=== PATIENT | male | born 1995 | race African-American/Black ===

== ENCOUNTER 2023-08-29 09:03 | Emergency (ER) | payer SELFPAY ==
[2023-08-29] MEDS ORDERED: MORPHINE 4 MG/ML SYR ONE (09:36)
[2023-08-29] MEDS ORDERED: MORPHINE 2 MG/ML SYR ONE (09:39)
[2023-08-29] MEDS ORDERED: HYDROMORPHONE HCL 1 MG/ML INJ ONE ×2 (10:18→11:22)
--- NOTE | 2023-08-29 10:33 | EDPHYS ---
Physician Documentation [facility] Name: Wesley Lake Age: 28 yrs Sex: Male : 1995 Arrival Date: 08/29/2023 Time: 09:03 Bed 3 Private MD: ED Physician Eduarda Miller HPI: 08/28 09:45 This 28 yrs old Black or Male presents to ER via Wheelchair with gb1 complaints of Fall Injury. 09:45 Mr. Lake is a 28-year-old -Algerian male that was transferred by ambulance with gb1 his significant other at his side after a fall injury at work. He was climbing over wires and fell and felt a pop in his right shoulder. He states that he is unable to lower his shoulder down without pain. His pain is 10 out of 10 at this time. He has had similar injury in the past but states that it was not dislocated. He is able to feel and has normal sensation on the right upper and lower extremity. Patient denies any head strike or loss of consciousness with the fall.. Historical: - Allergies: 09:32 PENICILLINS; aa5 - PMHx: 09:32 None; aa5 - PSHx: 09:32 throat; aa5 - Immunization history:: Adult Immunizations unknown. - Infectious Disease History:: Denies. - Immunization history: Last tetanus immunization: - up to date. - Social history:: Smoking status: Patient reports the use of cigarette tobacco products. Exam: 09:45 Constitutional: This is a well developed, well nourished patient who is awake, alert, gb1 and in no acute distress. Head/Face: Normocephalic, atraumatic. Eyes: Pupils equal round and reactive to light, extra-ocular motions intact. Lids and lashes normal. Conjunctiva and sclera are non-icteric and not injected. Cornea within normal limits. Periorbital areas with no swelling, redness, or edema. ENT: Nares patent. No nasal discharge, no septal abnormalities noted. Tympanic membranes are normal and external auditory canals are clear. Oropharynx with no redness, swelling, or masses, exudates, or evidence of obstruction, uvula midline. Mucous membranes moist. Neck: Trachea midline, no thyromegaly or masses palpated, and no cervical lymphadenopathy. Supple, full range of motion without nuchal rigidity, or vertebral point tenderness. No Meningismus. Chest/axilla: Normal chest wall appearance and motion. Nontender with no deformity. No lesions are appreciated. Cardiovascular: Tachycardia, and rhythm with a normal S1 and S2. No gallops, murmurs, or rubs. Normal PMI, no JVD. No pulse deficits. Respiratory: Lungs have equal breath sounds bilaterally, clear to auscultation and percussion. No rales, rhonchi or wheezes noted. No increased work of breathing, no retractions or nasal flaring. Abdomen/GI: Soft, non-tender, with normal bowel sounds. No distension or tympany. No guarding or rebound. No evidence of tenderness throughout. Back: No spinal tenderness. No costovertebral tenderness. Full range of motion. Skin: Warm, dry with normal turgor. Normal color with no rashes, no lesions, and no evidence of cellulitis. MS/ Extremity: Patient has right upper extremity deformity as he is unable to lower the shoulder without pain. There does appear to be a difference in the appearance of the right and left shoulder. Patient has normal capillary refill in the right upper extremity. Pulses equal, no cyanosis. Neurovascular intact. Neuro: Awake and alert, GCS 15, oriented to person, place, time, and situation. Cranial nerves II-XII grossly intact. Motor strength 5/5 in all extremities. Sensory grossly intact. Cerebellar exam normal. Normal gait. Psych: Awake, alert, with orientation to person, place and time. Behavior, mood, and affect are within normal limits. Vital Signs: 09:28 BP 134 / 85; Pulse 104; Resp 24 S; Temp 98(TE); Pulse Ox 100% on R/A; Weight 77.11 kg aa5 (R); Height 5 ft. 5 in. (R); 09:30 BP 140 / 85; Pulse 105; Resp 22; Pulse Ox 99% on R/A; rs5 10:15 BP 135 / 80; Pulse 88; Resp 18; Pulse Ox 99% on R/A; rs5 10:40 BP 137 / 81; Pulse 94; Resp 20; Pulse Ox 99% on R/A; rs5 11:50 BP 133 / 77; Pulse 90; Resp 19; Pulse Ox 99% on R/A; rs5 09:28 Body Mass Index 28.29 (77.11 kg, 165.1 cm) aa5 [place] Coma Score: 09:30 Eye Response: spontaneous(4). Motor Response: obeys commands(6). Verbal Response: rs5 oriented(5). Total: 15. Trauma Score (Adult): 09:30 Eye Response: spontaneous(1); Verbal Response: oriented(1); Motor Response: obeys rs5 commands(2); Systolic BP: > 89 mm Hg(4); Respiratory Rate: 10 to 29 per min(4); Brad Score: 15; Trauma Score: 12 MDM: 09:30 Patient medically screened. gb1 09:45 Differential diagnosis: abrasion, contusion, fracture, Also concern for rotator cuff gb1 tear vs shoulder dislocation. 09:48 Differential diagnosis: sprain, strain. gb1 10:28 Data reviewed: radiologic studies, plain films. ED course: Mr. Lake status post a fall gb1 onto right outstretched hand has a right humeral head fracture and dislocation appears inferiorly dislocated. I discussed case with Dr. Bianchi and he did recommend trauma transfer to a higher level of care as at this time he is unable to accept the consult on this patient. Patient will need operative relocation of the right humeral head as well as repair of the humeral head fracture. At this time I will not attempt relocation secondary to the patient's humeral head fracture that appears significant. 10:41 ED course: I spoke to Dr. Samano at [facility] she is the trauma service. She signed off as this gb1 patient does not appear to meet level 1 or 2, "R0 Americana alcohol, yet this 1 with 3 shots okay hey as you know Walker how are you good I have this 28-year-old very healthy giovani only has a penicillin allergy does not take any medicine states that her right shoulder dislocation and fracture of the surgical of the humeral neck I asked Ortho WhatsApp okay thank you to make an the patient is is the patient is stable for transfer trauma Criteria. I will now discussed the case with Dr. Padron, who accepted ED to ED transfer for Ortho consultation.. 08/28 09:33 Order name: Shoulder Right (2 View) XRAY; Complete Time: 10:40 gb1 08/28 10:40 Interpretation: Abnormal. [facility] 08/28 09:33 Order name: Chest Single View XRAY; Complete Time: 10:40 gb1 Administered Medications: 09:40 Drug: morphine IVP or IV 6 mg IVP once over 4 mins Route: IVP; Infused Over: 4 mins; rs5 Site: left antecubital; 10:00 Follow up: Response: No adverse reaction rs5 10:24 Drug: HYDROmorphone IVP 1 mg IVP once Route: IVP; Site: left antecubital; rs5 11:00 Follow up: Response: No adverse reaction rs5 11:10 Drug: HYDROmorphone IVP 1 mg IVP once Route: IVP; Site: left antecubital; rs5 11:22 Follow up: Response: No adverse reaction rs5 Disposition Summary: 08/29/23 10:33 Transfer Ordered Notes: Transfer Location: [facility] gb1 Reason: Higher level of care gb1 Condition: Fair gb1 Problem: new gb1 Symptoms: are unchanged gb1 Accepting Physician: Dr. Padron(08/29/23 11:59) rs5 Diagnosis - Other dislocation of right shoulder joint gb1 - 2-part displaced fracture of surgical neck of right humerus gb1 - Fall (on)(from) incline gb1 Forms: - Medication Reconciliation Form gb1 - SBAR form gb1 Signatures: Dispatcher [employer] EDAni Zamora, RN RN aa5 Giovanny Rogers RN RN rs5 Eduarda Miller MD MD gb1 Corrections: (The following items were deleted from the chart) 09:34 09:34 Chest Single View+RAD.RAD.BRZ ordered. EDMS EDMS 10:44 10:33 FALL LADDER gb1 gb1 11:59 10:44 Dr. Padron gb1 rs5
--- NOTE | 2023-08-29 10:33 | ER ---
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 Pt c/o unable to move aa5 right shoulder. 09:28 Care prior to arrival: None. Mechanism of Injury: Fall. Trauma event details: Injury aa5 occurred in the [facility]. 09:28 Method Of Arrival: Wheelchair aa5 09:28 Coronavirus screen: At this time, the client does not indicate any symptoms associated aa5 with coronavirus-19. 09:28 Ebola Screen: Patient denies travel to an Ebola-affected area in the 21 days before aa5 illness onset. Initial Sepsis Screen: Does the patient meet any 2 criteria? No. Patient's initial sepsis screen is negative. Does the patient have a suspected source of infection? No. Patient's initial sepsis screen is negative. Risk Assessment: Do you want to hurt yourself or someone else? Patient reports no desire to harm self or others. Onset of symptoms was August 29, 2023. 09:28 Acuity: [place] 2 aa5 Trauma Activation: Not Applicable Physician: ED Physician; Name: ; Notified At: ; Arrived At: Physician: General Surgeon; Name: ; Notified At: ; Arrived At: Physician: Radiology; Name: ; Notified At: ; Arrived At: Physician: Respiratory; Name: ; Notified At: ; Arrived At: Physician: Lab; Name: ; Notified At: ; Arrived At: Historical: - Allergies: 09:32 PENICILLINS; aa5 - PMHx: 09:32 None; aa5 - PSHx: 09:32 throat; aa5 - Immunization history:: Adult Immunizations unknown. - Infectious Disease History:: Denies. - Immunization history: Last tetanus immunization: - up to date. - Social history:: Smoking status: Patient reports the use of cigarette tobacco products. Screenin:30 [facility] ED Fall Risk Assessment (Adult) History of falling in the last 3 months, rs5 including since admission Yes- single mechanical fall (1 pt) Confusion or Disorientation No (0 pts) Intoxicated or Sedated No (0 pts) Impaired Gait No (0 pts) Mobility Assist Device Used No (0 pt) Altered Elimination No (0 pt) Score/Fall Risk Level 0 - 2 = Low Risk Oriented to surroundings, Maintained a safe environment. Abuse screen: Denies threats or abuse. Nutritional screening: No deficits noted. Tuberculosis screening: No symptoms or risk factors identified. Primary Survey: 09:30 NO uncontrolled hemorrhage observed. Circulation: No external hemorrhage present. rs5 Regular and strong central pulse, skin warm/dry/normal color. 09:30 A: The client is awake and alert. The airway is patent. Breathing/Chest: Spontaneous rs5 respiratory effort, equal unlabored respirations, breath sounds clear bilaterally, regular pattern, symmetrical chest rise and fall. Disability Pupils are equal, round, reactive to light and accommodation. Client is alert. Exposure/Environment: All clothing and personal items were removed. Forensic evidence collection is not deemed to be indicated at this time. Items placed in patient belonging bag. There is no evidence of uncontrolled external bleeding. No obvious injuries are noted at this time. A warming method has been applied: A warm blanket has been provided to the patient. Reassessment Alertness and Airway: Awake and alert. The airway is patent. Breathing: Respiratory effort Spontaneous Breath sounds Clear Respiratory pattern Tachypnea Chest inspection Symmetrical Circulation: Disability: Pupils Pupils are equal, round, reactive to light and accomodation. Alert. Assessment: 09:30 General: Appears distressed, uncomfortable, Behavior is cooperative, anxious. Pain: rs5 Complains of pain in right shoulder Pain currently is 10 out of 10 on a pain scale. Quality of pain is described as aching, Is continuous. Neuro: Level of Consciousness is awake, alert, obeys commands, Oriented to person, place, time, situation. Cardiovascular: Patient's skin is warm and dry. Rhythm is regular. Respiratory: Airway is patent Respiratory effort is even, unlabored, Respiratory pattern is regular, symmetrical. GI: Abdomen is round non-distended, Abd is soft and non tender X 4 quads. : No signs and/or symptoms were reported regarding the genitourinary system. EENT: No signs and/or symptoms were reported regarding the EENT system. Derm: Skin is intact, Skin is dry, Skin is normal, Skin temperature is warm. Musculoskeletal: Range of motion: limited in right shoulder. 09:50 Reassessment: Patient and/or family updated on plan of care and expected duration. Pain rs5 level reassessed. Patient is alert, oriented x 3, equal unlabored respirations, skin warm/dry/pink. Patient states feeling better. 10:20 Pain: Complains of pain in right shoulder Pain currently is 8 out of 10 on a pain scale.rs5 10:21 Reassessment: Provider notified pt is experiencing pain. rs5 10:24 Reassessment: to bedside for med adm. rs5 11:05 Pain: Complains of pain in right shoulder Pain currently is 8 out of 10 on a pain rs5 scale. Quality of pain is described as aching, Is continuous. 11:06 Reassessment: Provider notified pt is experiencing pain. rs5 11:10 Reassessment: to bedside for med adm. rs5 11:57 Reassessment: report given to EMS at bedside . rs5 Vital Signs: 09:28 BP 134 / 85; Pulse 104; Resp 24 S; Temp 98(TE); Pulse Ox 100% on R/A; Weight 77.11 kg aa5 (R); Height 5 ft. 5 in. (R); 09:30 BP 140 / 85; Pulse 105; Resp 22; Pulse Ox 99% on R/A; rs5 10:15 BP 135 / 80; Pulse 88; Resp 18; Pulse Ox 99% on R/A; rs5 10:40 BP 137 / 81; Pulse 94; Resp 20; Pulse Ox 99% on R/A; rs5 11:50 BP 133 / 77; Pulse 90; Resp 19; Pulse Ox 99% on R/A; rs5 09:28 Body Mass Index 28.29 (77.11 kg, 165.1 cm) aa5 [place] Coma Score: 09:30 Eye Response: spontaneous(4). Motor Response: obeys commands(6). Verbal Response: rs5 oriented(5). Total: 15. Trauma Score (Adult): 09:30 Eye Response: spontaneous(1); Verbal Response: oriented(1); Motor Response: obeys rs5 commands(2); Systolic BP: > 89 mm Hg(4); Respiratory Rate: 10 to 29 per min(4); [place] Score: 15; Trauma Score: 12 ED Course: 09:04 Patient arrived in ED. im 09:14 Eduarda Miller MD is Attending Physician. gb1 09:28 Arm band placed on. aa5 09:29 Giovanny Rogers, RN is Primary Nurse. rs5 09:30 Patient has correct armband on for positive identification. Placed in gown. Bed in low rs5 position. Call light in reach. Side rails up X2. 09:30 No provider procedures requiring assistance completed. rs5 09:34 Triage completed. aa5 09:40 Inserted saline lock: 20 gauge in left antecubital area, using aseptic technique. Blood rs5 collected. 09:41 Thermoregulation: warm blanket given to patient. rs5 10:16 initiated transfer to [facility]. bd 10:32 Shoulder Right (2 View) XRAY In Process Unspecified. EDMS 10:32 Chest Single View XRAY In Process Unspecified. EDMS 10:37 unable to contact [facility]. initiated transfer to [facility]. bd 11:44 pt accepted in transfer to [facility] by dr Padron admin approval given by poli Zelaya, pt going to ER. 11:55 Patient transferred, IV remains in place. rs5 Administered Medications: 09:40 Drug: morphine IVP or IV 6 mg IVP once over 4 mins Route: IVP; Infused Over: 4 mins; rs5 Site: left antecubital; 10:00 Follow up: Response: No adverse reaction rs5 10:24 Drug: HYDROmorphone IVP 1 mg IVP once Route: IVP; Site: left antecubital; rs5 11:00 Follow up: Response: No adverse reaction rs5 11:10 Drug: HYDROmorphone IVP 1 mg IVP once Route: IVP; Site: left antecubital; rs5 11:22 Follow up: Response: No adverse reaction rs5 Medication: 10:14 VIS not applicable for this client. rs5 Outcome: 10:33 ER care complete, transfer ordered by . gb1 11:55 Transferred by ground EMS to [facility], Transfer form rs5 completed. X-rays sent w/ patient. 11:55 Condition: stable 11:55 Discharge instructions given to patient, family, Instructed on discharge instructions, the need for transfer, Demonstrated understanding of instructions, 11:59 Patient left the ED. rs5 Signatures: Dispatcher [employer] EDMS Jazmine Worrell Audri RN RN aa5 Giovanny Rogers RN RN rs5 Kelly Butt Gina, MD MD gb1 Corrections: (The following items were deleted from the chart) 09:36 09:28 Acuity: ROSEMARY 3 aa5 aa5 10:15 09:28 BP 134 / 85; Pulse 104bpm; Resp 24bpm; Spontaneous; Pulse Ox 100% RA; Temp 98F aa5 Temporal; aa5 11:56 10:20 Reassessment: Provider notified pt is experiencing pain. rs5 rs5
--- NOTE | 2023-08-29 10:38 | RAD REPORT ---
EXAM DESCRIPTION: Jhon Single View08/29/2023 10:30 am CLINICAL HISTORY: Chest pain COMPARISON: none FINDINGS: The lungs appear clear of acute infiltrate. The heart is normal size IMPRESSION: No acute abnormalities displayed
--- NOTE | 2023-08-29 10:39 | RAD REPORT ---
EXAM DESCRIPTION: RAD - Shoulder Right 2 View - 08/29/2023 10:30 am CLINICAL HISTORY: Right shoulder pain FINDINGS: Anterior dislocation right humeral head. Examination is suboptimal but there does appear to be a humeral neck fracture Avulsion fracture the acromion process of indeterminate age
[2023-08-29 12:35] VITALS: BP 134/85; TEMP 98; O2SAT 100
== END 2023-08-29 11:59 | disposition short-term general hospital (02) ==
LOC: ER 09:03
DX: S42.221A 2-part displaced fracture of surgical neck of right humerus, initial encounter for closed fracture (principal); W10.2XXA Fall (on)(from) incline, initial encounter; Z72.0 Tobacco use; Z88.0 Allergy status to penicillin
CPT/HCPCS: 71045; 96374; 96375; 99285; J1170; J2270

== ENCOUNTER 2024-08-21 09:36 | Emergency (ER) | payer SELFPAY ==
[2024-08-21] MEDS ORDERED: LIDOCAINE 1% 20 ML MDV ONE (09:47)
[2024-08-21] MEDS ORDERED: HYDROCODONE/APAP 5/325 MG TAB ONE (10:27)
--- NOTE | 2024-08-21 10:30 | EDPHYS ---
Physician Documentation [facility] Name: Wesley Lake Age: 29 yrs Sex: Male : 1995 Arrival Date: 08/21/2024 Time: 09:36 Bed 15 Private MD: ED Physician Zeb Mendes HPI: 08/21 10:28 This 29 yrs old Black Male presents to ER via Ambulatory with complaints of Abscess - rn on chest. 10:28 The patient presents with an abscess of the chest. Onset: The symptoms/episode rn began/occurred 3 day(s) ago. Possible cause(s): unknown. Patient reports abscess on chest. Gets abscesses or infections of the skin on the chest frequently. Works outdoors and sweats a lot. Reports swelling and pain. Has required incision and drainage before. No fever or chills.. Historical: - Allergies: 09:46 PENICILLINS; iw - Home Meds: 09:46 None [Active]; iw - PMHx: 09:46 None; iw - PSHx: 09:46 throat; iw - Immunization history:: Adult Immunizations not up to date. - Infectious Disease History:: Denies. - Social history:: Smoking status: Patient reports the use of cigarette tobacco products, smokes one pack cigarettes per day. - Family history:: not pertinent. - Hospitalizations: : No recent hospitalization is reported. ROS: 10:28 Constitutional: Negative for fever, chills, and weight loss, Skin: Positive for abscess rn on chest Exam: 10:28 Constitutional: This is a well developed, well nourished patient who is awake, alert, rn and in no acute distress. Chest/axilla: 3 cm area of fluctuance and induration center chest on top of sternum. Some drainage with pressure. Vital Signs: 09:45 BP 161 / 115; Pulse 99; Resp 19; Temp 99.1; Pulse Ox 100% ; Weight 74.84 kg; Height 5 iw ft. 5 in. ; Pain 8/10; 10:33 BP 149 / 98; Pulse 91; Resp 18; Pulse Ox 100% on R/A; ld1 09:45 Body Mass Index 27.46 (74.84 kg, 165.1 cm) iw 09:45 Pain Scale: Adult iw Procedures: 10:28 I \T\ D: Incision and drainage was performed for an abscess of the chest Prepped with rn Betadine, Anesthetized with 4 ml's 1% Lidocaine. Incised with #11 blade. Drained moderate amount purulent fluid. serosanguinous fluid. Packed with iodoform gauze, Dressing: sterile 4x4 gauze, the patient tolerated the procedure well. MDM: 09:44 Medical Screening Exam initiated rn 10:28 Differential diagnosis: abscess, cellulitis. Data reviewed: vital signs, nurses notes, rn and as a result, I will discharge patient. Counseling: I had a detailed discussion with the patient and/or guardian regarding the historical points, exam findings, and any diagnostic results supporting the discharge/admit diagnosis, the need for outpatient follow up, to return to the emergency department if symptoms worsen or persist or if there are any questions or concerns that arise at home. Response to treatment: the patient's symptoms have markedly improved after treatment, and as a result, I will discharge patient. Special discussion: I discussed with the patient/guardian in detail that at this point there is no indication for admission to the hospital. It is understood, however, that if the symptoms persist or worsen the patient needs to return immediately for re-evaluation. 08/21 09:49 Order name: Suture Tray at Bedside; Complete Time: 09:52 rn Administered Medications: 10:32 Drug: Clindamycin PO 300 mg PO once Route: PO; ld1 10:44 Follow up: Response: No adverse reaction ld1 10:32 Drug: HYDROcodone-acetaminophen PO 5 mg-325 mg 1 tabs PO once Route: PO; ld1 10:45 Follow up: Response: No adverse reaction ld1 10:33 Drug: Lidocaine Infiltration (1 %) 1 vials 5 ml Infiltration once; to bedside {Note: ld1 Administered by Dr. Mendes.} Volume: 5 ml; Route: Infiltration; 10:44 Follow up: Response: No adverse reaction ld1 Disposition Summary: 08/21/24 10:30 Discharge Ordered Notes: Location: Home rn Problem: new rn Symptoms: have improved rn Condition: Stable rn Diagnosis - Cutaneous abscess of chest wall rn Followup: rn - With: Private Physician - When: As needed - Reason: Recheck today's complaints, Re-evaluation by your physician Discharge Instructions: - Discharge Summary Sheet rn - Skin Abscess rn - Incision and Drainage rn - Wound Packing rn Forms: - Medication Reconciliation Form rn - Antibiotic furniture painter - Prescription Opioid Use rn - Patient Portal Instructions rn - Leadership Thank You Letter rn Prescriptions: - Clindamycin HCl 300 mg Oral Capsule - take 1 capsule ORAL route every 6 hours for 10 days; 40 capsule; Refills: 0, rn Product Selection Permitted - Tramadol 50 mg Oral Tablet - take 1 tablet ORAL route every 8 hours as needed; 12 tablet; Refills: 0, rn Product Selection Permitted Signatures: Che Partida RN RN iw Nieto, Roman, MD MD rn Sims, Lauren, RN RN ld1
--- NOTE | 2024-08-21 10:30 | ER ---
Nurse's Notes [facility] Name: Wesley Lake Age: 29 yrs Sex: Male : 1995 Arrival Date: 08/21/2024 Time: 09:36 Bed 15 Private MD: Diagnosis: Cutaneous abscess of chest wall Presentation: 08/21 09:45 Chief complaint: Patient states: abscess on chest X 3 days, it started draining today. iw Coronavirus screen: At this time, the client does not indicate any symptoms associated with coronavirus-19. Ebola Screen: No symptoms or risks identified at this time. Initial Sepsis Screen: Does the patient meet any 2 criteria? No. Patient's initial sepsis screen is negative. Does the patient have a suspected source of infection? No. Patient's initial sepsis screen is negative. Risk Assessment: Do you want to hurt yourself or someone else? Patient reports no desire to harm self or others. Onset of symptoms was August 18, 2024. 09:45 Method Of Arrival: Ambulatory 09:45 Acuity: ROSEMARY 4 iw Historical: - Allergies: 09:46 PENICILLINS; iw - Home Meds: 09:46 None [Active]; iw - PMHx: 09:46 None; iw - PSHx: 09:46 throat; iw - Immunization history:: Adult Immunizations not up to date. - Infectious Disease History:: Denies. - Social history:: Smoking status: Patient reports the use of cigarette tobacco products, smokes one pack cigarettes per day. - Family history:: not pertinent. - Hospitalizations: : No recent hospitalization is reported. Screenin:33 [facility] ED Fall Risk Assessment (Adult) History of falling in the last 3 months, ld1 including since admission No falls in past 3 months (0 pts) Confusion or Disorientation No (0 pts) Intoxicated or Sedated No (0 pts) Impaired Gait No (0 pts) Mobility Assist Device Used No (0 pt) Altered Elimination No (0 pt) Score/Fall Risk Level 0 - 2 = Low Risk Oriented to surroundings, Hourly rounding (assess needs \T\ fall precautionary measures) done. Abuse screen: Denies threats or abuse. Denies injuries from another. Nutritional screening: No deficits noted. Tuberculosis screening: No symptoms or risk factors identified. Assessment: 10:33 General: Appears in no apparent distress. comfortable, Behavior is calm, cooperative, ld1 appropriate for age. Pain: Complains of pain in mid-sternal area Pain does not radiate. Pain currently is 7 out of 10 on a pain scale. Quality of pain is described as throbbing, Pain began 2 weeks Is continuous. Neuro: Level of Consciousness is awake, alert, obeys commands, Oriented to person, place, time, situation. Cardiovascular: Capillary refill < 3 seconds Patient's skin is warm and dry. Respiratory: Airway is patent Respiratory effort is even, unlabored. GI: Abdomen is flat, non-distended. : No signs and/or symptoms were reported regarding the genitourinary system. EENT: No signs and/or symptoms were reported regarding the EENT system. Derm: Abscess located on mid-sternal area. 10:51 Reassessment: Patient appears in no apparent distress at this time. No changes from ld1 previously documented assessment. Patient and/or family updated on plan of care and expected duration. Pain level reassessed. Patient is alert, oriented x 3, equal unlabored respirations, skin warm/dry/pink. Vital Signs: 09:45 BP 161 / 115; Pulse 99; Resp 19; Temp 99.1; Pulse Ox 100% ; Weight 74.84 kg; Height 5 iw ft. 5 in. ; Pain 8/10; 10:33 BP 149 / 98; Pulse 91; Resp 18; Pulse Ox 100% on R/A; ld1 09:45 Body Mass Index 27.46 (74.84 kg, 165.1 cm) iw 09:45 Pain Scale: Adult iw ED Course: 09:40 Patient arrived in ED. ld1 09:44 Zeb Mendes MD is Attending Physician. rn 09:46 Triage completed. iw 09:47 Arm band placed on. iw 09:52 María Khan, CORNELIA is Primary Nurse. ld1 10:33 Patient has correct armband on for positive identification. Placed in gown. Bed in low ld1 position. Call light in reach. Side rails up X2. Pulse ox on. NIBP on. Door closed. Noise minimized. Warm blanket given. 10:33 No provider procedures requiring assistance completed. Patient did not have IV access ld1 during this emergency room visit. Administered Medications: 10:32 Drug: Clindamycin PO 300 mg PO once Route: PO; ld1 10:44 Follow up: Response: No adverse reaction ld1 10:32 Drug: HYDROcodone-acetaminophen PO 5 mg-325 mg 1 tabs PO once Route: PO; ld1 10:45 Follow up: Response: No adverse reaction ld1 10:33 Drug: Lidocaine Infiltration (1 %) 1 vials 5 ml Infiltration once; to bedside {Note: ld1 Administered by Dr. Mendes.} Volume: 5 ml; Route: Infiltration; 10:44 Follow up: Response: No adverse reaction ld1 Medication: 10:33 VIS not applicable for this client. ld1 Outcome: 10:30 Discharge ordered by . rn 10:51 Discharged to home ambulatory, ld1 10:51 Condition: stable 10:51 Discharge instructions given to patient, Instructed on discharge instructions, follow up and referral plans. Demonstrated understanding of instructions, follow-up care, medications, Prescriptions given X 1, 10:52 Patient left the ED. ld1 Signatures: Che Partida RN RN iw Zeb Mendes MD MD rn Sims, Lauren, RN RN ld1 Corrections: (The following items were deleted from the chart) 09:47 09:45 BP 161 / 115; Pulse 105bpm; Resp 19bpm; Pulse Ox 100%; Temp 99.1F; 74.84 kg; iw Height 5 ft. 5 in.; BMI: 27.4; Pain 8/10, Adult; iw
[2024-08-22 04:37] VITALS: TEMP 99.1; O2SAT 100
[2024-08-22 04:38] VITALS: BP 149/98
== END 2024-08-21 10:52 | disposition home or self-care (01) ==
LOC: ER 09:36
PROC: 0H95XZZ Drainage of Chest Skin, External Approach (ICD-10-PCS; principal; 2024-08-21)
DX: L02.213 Cutaneous abscess of chest wall (principal)
CPT/HCPCS: J2003

== ENCOUNTER 2024-08-28 22:37 | Emergency (ER) | payer SELFPAY ==
[2024-08-28] MEDS ORDERED: KETOROLAC 30 MG/ML INJ ONE (23:05)
[2024-08-28] MEDS ORDERED: ONDANSETRON 4 MG/2 ML VIAL ONE (23:05)
[2024-08-28] MEDS ORDERED: METHYLPREDNISOLONE 125 MG INJ ONE (23:05)
[2024-08-28] MEDS ORDERED: DIPHENHYDRAMINE 50 MG/ML VIAL ONE (23:05)
[2024-08-28] MEDS ORDERED: NA CHLORIDE 0.9% 1,000 ML ONE (23:06)
[2024-08-28] MEDS ORDERED: FAMOTIDINE 20 MG/2 ML VIAL IV ONE (23:06)
[2024-08-28 23:43] LABS: Absolute Eosinophils 0.4 K/uL (0-0.5); Absolute Lymphocytes (CBC) 3.3 K/uL (0.7-4.9); Absolute Monocytes 0.6 K/uL (0.1-1.3); Absolute Neutrophil 3.2 K/uL (1.8-8.0); Basophils % 0.5 % (0-1.3); Eosinophils % 5.4 % (0-4.4); Hematocrit 41.9 % (39.6-49.0); Hemoglobin 14.5 g/dL (13.6-17.9); Lymphocytes % 43.8 % (15.3-44.8); MCH 31.4 pg (27.0-35.0); MCHC 34.6 g/dL (32.0-36.0); MCV 90.5 fL (80-100); MPV 7.8 fL (7.6-11.3); Monocytes % 7.7 % (3.3-12.3); Neutrophils % 42.6 % (41.7-73.7); Nucleated Red Blood Cells % 0.1 % (0-0); Platelets 243 thou/uL (152-406); RBC Red Blood Cell Count 4.63 M/uL (4.33-5.43); Red Cell Distribution Width 14.5 % (12.1-15.2)
[2024-08-28 23:50] LABS: Albumin 3.9 g/dL (3.4-5.0); Anion Gap 12.3 mEq/L (5.0-15.0); Bilirubin Total 0.2 mg/dL (0.2-1.0); Globulin 3.8 g/dL (2.3-3.5); Potassium 3.3 mEq/L (3.5-5.1); Protein, Total 7.7 g/dL (6.4-8.2)
--- NOTE | 2024-08-29 01:30 | EDPHYS ---
Physician Documentation [facility] Name: Wesley Lake Age: 29 yrs Sex: Male : 1995 Arrival Date: 08/28/2024 Time: 22:37 Bed 12 Private MD: ED Physician Bereket Dennis HPI: 08/28 22:43 This 29 yrs old Black Male presents to ER via Unassigned with complaints of Productive sp4 Cough. 08/29 22:24 29-year-old male presents with complaint of productive cough. Patient had a little bit sp4 of alcohol to drink and then developed cough and choking on his phlegm. He presents acutely anxious and coughing.. Historical: - Allergies: 08/28 22:45 PENICILLINS; br2 - PSHx: 22:45 throat; br2 - Immunization history:: Adult Immunizations not up to date. - Infectious Disease History:: Denies. - Social history:: Smoking status: Patient reports the use of cigarette tobacco products, smokes two packs cigarettes per day. Patient uses alcohol, on a daily basis. VODKA. - Family history:: not pertinent. ROS: 08/29 22:24 Constitutional: Negative for fever, chills, and weight loss, positive for cough, sp4 positive for anxiety, positive for intoxication All other systems are negative, Exam: 22:24 Constitutional: This is a well developed, well nourished patient who is awake, alert, sp4 positive for acute anxiety, positive for intoxication positive for cough on arrival. Head/Face: Normocephalic, atraumatic. Eyes: Pupils equal round and reactive to light, extra-ocular motions intact. Lids and lashes normal. Conjunctiva and sclera are not injected. Cornea within normal limits. Periorbital areas with no swelling, redness, or edema. ENT: Nares patent. No nasal discharge, no septal abnormalities noted. Tympanic membranes are normal and external auditory canals are clear. Oropharynx with no redness, swelling, or masses, exudates, or evidence of obstruction, uvula midline. Mucous membranes moist. Neck: Trachea midline, no thyromegaly or masses palpated, and no cervical lymphadenopathy. Supple, full range of motion without nuchal rigidity, or vertebral point tenderness. Chest/axilla: Normal chest wall appearance and motion. Nontender with no deformity. No lesions are appreciated. Cardiovascular: Regular rate and rhythm with a normal S1 and S2. No gallops, murmurs, or rubs. Normal PMI, no JVD. No pulse deficits. Respiratory: Lungs have equal breath sounds bilaterally, clear to auscultation and percussion. No rales, rhonchi or wheezes noted. No increased work of breathing, no retractions or nasal flaring. Abdomen/GI: Soft, with normal bowel sounds. No distension or tympany. No guarding or rebound. No evidence of tenderness throughout. Back: No spinal tenderness. No costovertebral tenderness. Skin: Warm, dry with normal turgor. Normal color with no rashes, no lesions, and no evidence of cellulitis. MS/ Extremity: Pulses equal, no cyanosis. Neurovascular intact. Full, normal range of motion. Neuro: Awake and alert, GCS 15, oriented to person, place, time, and situation. Cranial nerves II-XII grossly intact. Motor strength 5/5 in all extremities. Sensory grossly intact. Psych: Awake, alert, with orientation to person, place and time. Behavior, mood, and affect are within normal limits Vital Signs: 08/28 22:43 BP 146 / 97; Pulse 79; Resp 18; Temp 97.4; Pulse Ox 100% ; Weight 81.65 kg; Height 5 br2 ft. 5 in. ; Pain 0/10; 08/29 00:04 BP 136 / 91; Pulse 98; Resp 18; Temp 97.2(TE); Pulse Ox 99% on R/A; Pain 0/10; br2 02:00 BP 130 / 84; Pulse 80; Resp 18; Pulse Ox 99% ; Pain 0/10; br2 08/28 22:43 Body Mass Index 29.95 (81.65 kg, 165.1 cm) br2 08/28 22:43 Pain Scale: Adult br2 08/29 00:04 Pain Scale: Adult br2 02:00 Pain Scale: Adult br2 Brad Coma Score: 22:24 Eye Response: spontaneous(4). Motor Response: obeys commands(6). Verbal Response: sp4 oriented(5). Total: 15. MDM: 08/28 23:16 Medical Screening Exam initiated sp4 08/29 22:26 Differential diagnosis: angioedema, Arrhythmias bronchospasm, Status Asthmaticus sp4 urticaria, Vasovagal Reactions. Data reviewed: vital signs, nurses notes, EMS record, lab test result(s). Consideration of Admission/Observation Escalation of care including admission/observation considered. 22:27 ED course: And basically there is acute intoxication and anxiety attack, there is no sp4 sign of airway obstruction. Patient stable for discharge home.. 22:27 ED course: Patient improved overall after medications. Stable for discharge home.. sp4 08/28 22:43 Order name: ETOH Level; Complete Time: : sp4 08/28 22:43 Order name: CBC with Diff; Complete Time: : sp4 08/28 22:43 Order name: CMP; Complete Time: sp4 08/28 22:43 Order name: IV Saline Lock; Complete Time: 23: sp4 08/28 21:43 Order name: Labs collected and sent; Complete Time: 23:13 sp4 Administered Medications: 08/28 23:12 Drug: MethylPrednisoLONE IVP 125 mg IVP once Route: IVP; Site: right antecubital; br2 08/29 02:02 Follow up: Response: No adverse reaction br2 08/28 23:13 Drug: Famotidine IVP 20 mg IVP once; dilute with 10 mL 0.9% NaCl; give over 2 minutes br2 Route: IVP; Site: right antecubital; 08/29 00:00 Follow up: Response: No adverse reaction br2 08/28 23:13 Drug: TORadol - Ketorolac IVP 15 mg IVP once Route: IVP; Site: right antecubital; br2 08/29 00:00 Follow up: Response: No adverse reaction 2 08/28 23:13 Drug: Ondansetron IVP 4 mg IVP once; over 2 minutes Route: IVP; Site: right antecubital;br2 08/29 00:00 Follow up: Response: No adverse reaction 2 08/28 23:13 Drug: NS 0.9% IV 1000 ml IV at 1 bolus Per protocol; to be given as a bolus over 60 br2 minutes Route: IV; Rate: 1 bolus; Site: right antecubital; 08/29 02:01 Follow up: Response: No adverse reaction; IV Status: Completed infusion; IV Intake: br2 1000ml 08/28 23:13 Drug: diphenhydrAMINE IVP 25 mg IVP once Route: IVP; Site: right antecubital; br2 08/29 00:00 Follow up: Response: No adverse reaction br2 Disposition: 22:28 Chart complete. sp4 Disposition Summary: 08/29/24 01:30 Discharge Ordered Notes: Location: Home sp4 Problem: new sp4 Symptoms: have improved sp4 Condition: Stable sp4 Diagnosis - Alcohol abuse with intoxication, uncomplicated sp4 - Acute viral bronchitis sp4 Followup: sp4 - With: Private Physician - When: 7 - 10 days - Reason: Recheck today's complaints Discharge Instructions: - Discharge Summary Sheet sp4 - Acute Bronchitis, Adult, [id number] sp4 Forms: - Patient Portal Instructions sp4 Prescriptions: - dextromethorphan-guaifenesin 20-400 mg Oral tablet - take 1 tablet ORAL route every 4 hours as needed for cough; 40 tablet; Refills: sp4 0, Product Selection Permitted - Benadryl 25 mg Oral capsule - take 1 capsule ORAL route every 8 hours As needed PRN congestion; 30 tablet; sp4 Refills: 0, Product Selection Permitted Signatures: Dispatcher [employer] Bereket Mehta MD MD sp4 Melissa Ji RN RN br2
--- NOTE | 2024-08-29 01:30 | ER ---
Nurse's Notes [facility] Name: Wesley Lake Age: 29 yrs Sex: Male : 1995 Arrival Date: 08/28/2024 Time: 22:37 Bed 12 Private MD: Diagnosis: Alcohol abuse with intoxication, uncomplicated;Acute viral bronchitis Presentation: 08/28 22:43 Chief complaint: Patient states: PRODUCTIVE COUGH AND AND STATES HE IS UNABLE TO GET br2 ALL PHLEGM. Coronavirus screen: Client denies travel out of the [place] in the last 14 days. Ebola Screen: Patient denies exposure to infectious person. Initial Sepsis Screen: Does the patient meet any 2 criteria? No. Patient's initial sepsis screen is negative. Does the patient have a suspected source of infection? No. Patient's initial sepsis screen is negative. Risk Assessment: Do you want to hurt yourself or someone else? Patient reports no desire to harm self or others. Onset of symptoms was August 28, 2024 at 22:00. 22:43 Method Of Arrival: EMS: [facility] br2 22:43 Acuity: ROSEMARY 3 br2 Triage Assessment: 22:45 General: Appears uncomfortable, Behavior is. Pain: Denies pain. Respiratory: Reports br2 cough that is productive, Onset: The symptoms/episode began/occurred suddenly, the patient has mild shortness of breath. Historical: - Allergies: 22:45 PENICILLINS; br2 - PSHx: 22:45 throat; br2 - Immunization history:: Adult Immunizations not up to date. - Infectious Disease History:: Denies. - Social history:: Smoking status: Patient reports the use of cigarette tobacco products, smokes two packs cigarettes per day. Patient uses alcohol, on a daily basis. VODKA. - Family history:: not pertinent. Screenin:43 [facility] ED Fall Risk Assessment (Adult) History of falling in the last 3 months, br2 including since admission No falls in past 3 months (0 pts) Confusion or Disorientation No (0 pts) Intoxicated or Sedated No (0 pts) Impaired Gait No (0 pts) Mobility Assist Device Used No (0 pt) Altered Elimination No (0 pt) Score/Fall Risk Level 0 - 2 = Low Risk Oriented to surroundings. Abuse screen: Denies threats or abuse. Denies injuries from another. Nutritional screening: No deficits noted. Tuberculosis screening: No symptoms or risk factors identified. Assessment: 22:45 Reassessment: SEE TRIAGE ASSESSMENT. br2 08/29 00:08 Reassessment: Patient and/or family updated on plan of care and expected duration. Pain br2 level reassessed. Patient is alert, oriented x 3, equal unlabored respirations, skin warm/dry/pink. Patient states feeling better. Patient states symptoms have improved. Cardiovascular: Rhythm is regular. Respiratory: 02:00 Reassessment: Patient and/or family updated on plan of care and expected duration. Pain br2 level reassessed. Patient is alert, oriented x 3, equal unlabored respirations, skin warm/dry/pink. Patient states feeling better. Patient states symptoms have improved. Vital Signs: 08/28 22:43 BP 146 / 97; Pulse 79; Resp 18; Temp 97.4; Pulse Ox 100% ; Weight 81.65 kg; Height 5 br2 ft. 5 in. ; Pain 0/10; 08/29 00:04 BP 136 / 91; Pulse 98; Resp 18; Temp 97.2(TE); Pulse Ox 99% on R/A; Pain 0/10; br2 02:00 BP 130 / 84; Pulse 80; Resp 18; Pulse Ox 99% ; Pain 0/10; br2 08/28 22:43 Body Mass Index 29.95 (81.65 kg, 165.1 cm) br2 08/28 22:43 Pain Scale: Adult br2 08/29 00:04 Pain Scale: Adult br2 02:00 Pain Scale: Adult br2 [place] Coma Score: 22:24 Eye Response: spontaneous(4). Motor Response: obeys commands(6). Verbal Response: sp4 oriented(5). Total: 15. ED Course: 08/28 22:42 Patient arrived in ED. br2 22:42 Bereket Dennis MD is Attending Physician. sp4 22:43 Melissa Ji RN is Primary Nurse. br2 22:43 Patient has correct armband on for positive identification. Call light in reach. Side br2 rails up X 1. Provided Education on: PLAN OF CARE. 22:45 Triage completed. br2 22:45 Arm band placed on. br2 23:13 CBC with Diff Sent. br2 23:13 CMP Sent. br2 23:13 ETOH Level Sent. br2 23:14 Inserted saline lock: 20 gauge in right antecubital area, using aseptic technique. br2 Blood collected. Flushed with 10 mL NS. 08/29 02:02 No provider procedures requiring assistance completed. IV discontinued, intact, br2 bleeding controlled, No redness/swelling at site. Pressure dressing applied. Administered Medications: 08/28 23:12 Drug: MethylPrednisoLONE IVP 125 mg IVP once Route: IVP; Site: right antecubital; br2 08/29 02:02 Follow up: Response: No adverse reaction br2 08/28 23:13 Drug: Famotidine IVP 20 mg IVP once; dilute with 10 mL 0.9% NaCl; give over 2 minutes br2 Route: IVP; Site: right antecubital; 08/29 00:00 Follow up: Response: No adverse reaction br2 08/28 23:13 Drug: TORadol - Ketorolac IVP 15 mg IVP once Route: IVP; Site: right antecubital; br2 08/29 00:00 Follow up: Response: No adverse reaction br2 08/28 23:13 Drug: Ondansetron IVP 4 mg IVP once; over 2 minutes Route: IVP; Site: right antecubital;br2 08/29 00:00 Follow up: Response: No adverse reaction br2 08/28 23:13 Drug: NS 0.9% IV 1000 ml IV at 1 bolus Per protocol; to be given as a bolus over 60 br2 minutes Route: IV; Rate: 1 bolus; Site: right antecubital; 08/29 02:01 Follow up: Response: No adverse reaction; IV Status: Completed infusion; IV Intake: br2 1000ml 08/28 23:13 Drug: diphenhydrAMINE IVP 25 mg IVP once Route: IVP; Site: right antecubital; br2 08/29 00:00 Follow up: Response: No adverse reaction br2 Medication: 08/28 22:45 VIS not applicable for this client. br2 Intake: 08/29 02:01 IV: 1000ml; Total: 1000ml. br2 Outcome: 01:30 Discharge ordered by MD. raymundo 02:02 Discharged to home ambulatory, br2 02:02 Condition: good 02:02 Discharge instructions given to patient, Instructed on discharge instructions, follow up and referral plans. Demonstrated understanding of instructions, follow-up care, medications, Prescriptions given X 2, 02:03 Patient left the ED. br2 Signatures: Bereket Dennis MD MD sp4 Melissa Ji RN RN br2
[2024-08-29 11:14] VITALS: TEMP 97.2; O2SAT 99
[2024-08-29 11:16] VITALS: BP 130/84
== END 2024-08-29 02:03 | disposition home or self-care (01) ==
LOC: ER 22:37
DX: J20.8 Acute bronchitis due to other specified organisms (principal); F10.129 Alcohol abuse with intoxication, unspecified
CPT/HCPCS: 36415; 80053; 82077; 85025; J1200; J2405; J2919; J7030